=== PATIENT | female | born 1965 | race Caucasian/White ===

== ENCOUNTER 2017-05-12 07:33 | Inpatient (IN) | payer BC ==
[2017-05-05 10:32] VITALS: BMI 46.0
--- NOTE | 2017-05-05 10:57 | PAT Medication Instructions ---
Service Date May 05, 2017. Current Home Medication List Albuterol Hfa (Ventolin Hfa), Unknown Dose INH PRN PRN for ASTHMA Cetirizine (Zyrtec), 10 MG PO QAM Esomeprazole Magnesium (Nexium), 20 MG PO QAM Fluticasone Prop/Salmeterol (Advair Diskus 250/50 60 Dose), 2 PUFF INH BID Potassium Chloride (Micro-K Ext Rel), 3 CAP PO QAM Triamterene & Hydrochlorothiaz (Hctz/Triamterene), 1 TAB PO QAM Medication Instructions For Your Scheduled Surgery - Hold the following medications the morning of surgery: Potassium Chloride (Micro-K Ext Rel), 3 CAP PO QAM Triamterene & Hydrochlorothiaz (Hctz/Triamterene), 1 TAB PO QAM Cetirizine (Zyrtec), 10 MG PO QAM - Take the following medications the morning of surgery with a sip of water OTHERWISE NOTHING TO EAT OR DRINK AFTER MIDNIGHT: Fluticasone Prop/Salmeterol (Advair Diskus 250/50 60 Dose), 2 PUFF INH BID Albuterol Hfa (Ventolin Hfa), Unknown Dose INH PRN PRN for ASTHMA (use if needed ; BRING TO HOSPITAL) Esomeprazole Magnesium (Nexium), 20 MG PO QAM - Take the following medications as scheduled the night before surgery: Fluticasone Prop/Salmeterol (Advair Diskus 250/50 60 Dose), 2 PUFF INH BID Albuterol Hfa (Ventolin Hfa), Unknown Dose INH PRN PRN for ASTHMA If you have any questions please call us at [phone] or [phone] or [phone]
[2017-05-05 11:33] LABS: BASO % 0.4 %; BASO ABS # 0.03 K/uL (0-0.2); COMPLETE YES; EOS % 1.2 %; HEMATOCRIT 40.7 % (37-47); IG% 0.1 %; LYMPH % 23.8 %; LYMPH ABS # 1.81 K/uL (1.2-3.4); MEAN CELL VOLUME 86.2 fL (80-100); MEAN CORPUSCULAR HEMOGLOBIN 29.4 pg (25-34); MEAN CORPUSCULAR HGB CONC 34.2 g/dl (32-36); MEAN PLATELET VOLUME 8.8 fL (7.4-10.4); MONO % 5.5 %; PLATELET COUNT 304 K/uL (130-400); RED BLOOD COUNT 4.72 M/uL (4.2-5.4); URINE APPEARANCE CLEAR (CLEAR); URINE BILIRUBIN NEG (NEG); URINE COLOR YELLOW; URINE NITRITE NEG (NEG); URINE PH 8.5 (4.5-7.5); URINE SPECIFIC GRAVITY 1.007 (1.000-1.030); UROBILINOGEN NEG (NEG); WHITE BLOOD COUNT 7.61 K/uL (4.8-10.8)
--- NOTE | 2017-05-05 11:34 | DIAGNOSTIC IMAGING REPORT ---
CHEST PREADMISSION(PA/LAT) CLINICAL HISTORY: PAT preoperative evaluation COMPARISON STUDY: No previous studies for comparison. FINDINGS: The bones soft tissues and hemidiaphragms are normal. The cardiomediastinal silhouette is normal. The lungs are clear. The pulmonary vasculature is normal. IMPRESSION: Negative chest. The above report was generated using voice recognition software. It may contain grammatical, syntax or spelling errors. Electronically signed by: Johnson Mcdowell M.D. 05/05/2017 11:33 AM Dictated Date/Time: 05/05/2017 11:33 AM
[2017-05-05 11:38] LABS: MANUAL MICROSCOPIC REQUIRED? NO; REVIEW REQ? NO
[2017-05-05 11:42] LABS: PARTIAL THROMBOPLASTIN RATIO 1.1; PROTHROMBIN TIME (PATIENT) 10.4 SECONDS (9.0-12.0)
[2017-05-05 12:42] LABS: BUN/CREATININE RATIO 13.5 (10-20); CALCIUM 9.9 mg/dl (8.5-10.1); POTASSIUM 3.6 mmol/L (3.5-5.1)
--- NOTE | 2017-05-08 18:18 | History and Physical ---
History & Physical Date May 08, 2017. History of Present Illness The patient is a 51 year old female with complaints of left knee pain for about 3 years. Has failed all other forms of conservative treatment and is ready for left tka. Additional History Hepatic Disease: No Endocrine Disorder: No Kidney Disease: No Hypertension: No Heart Disease: No Bleeding Tendencies: No Infectious Diseases: No Allergies Coded Allergies: No Known Allergies (Unverified , 05/05/17) Home Medications Scheduled Cetirizine (Zyrtec), 10 MG PO QAM Esomeprazole Magnesium (Nexium), 20 MG PO QAM Fluticasone Prop/Salmeterol (Advair Diskus 250/50 60 Dose), 2 PUFF INH BID Potassium Chloride (Micro-K Ext Rel), 3 CAP PO QAM Triamterene & Hydrochlorothiaz (Hctz/Triamterene), 1 TAB PO QAM Scheduled PRN Albuterol Hfa (Ventolin Hfa), Unknown Dose INH PRN PRN for ASTHMA Physical Examination Skin: warm/dry, no rash Eyes: normal inspection, EOMI, sclerae normal ENT: normal ENT inspection, pharynx normal Head: normocephalic, atraumatic Neck: supple, no adenopathy, trachea midline Respiratory/Chest: lungs clear, normal breath sounds, no respiratory distress Cardiovascular: regular rate, rhythm, no edema, no murmur Abdomen / GI: normal bowel sounds, non tender Back: normal inspection Extremities: normal inspection, normal range of motion, + pertinent finding ( terrible pain and rom left knee with deformity) Neurologic/Psych: no motor/sensory deficits, alert, normal reflexes, oriented x 3 Diagnosis DJD LEFT KNEE Plan of Treatment ADMIT TO [facility] FOR LEFT TKA.
[2017-05-12] VITALS (8 sets, daily range): BP systolic 116–169; BP diastolic 65–81; PULSE 95–116; TEMP 36.7–37.1; O2SAT 95–98; Ht 172.7 cm; Wt 138.0 kg
[~2017-05-12] VITALS: Ht 172.7 cm; Wt 138.0 kg
[~2017-05-12 07:33] MED LIST: ACETAMINOPHEN 500 MG TAB PO SCH; ADVIN25/60 INH; BUPIVACAINE 0.25% 30 ML VIAL ONE; BUPIVACAINE 0.5 % 5 MG/1 ML PF 10ML VIAL ONE; CEFAZOLIN 3000 MG/65 ML D5W 65 ML IV SCH; CETI10TA84 PO; CeleBREX 200 MG CAP PO SCH; DEXAMETHASONE 4 MG TAB PO SCH; ESOM20CA PO; EpINEphrine INJ 1MG/ML AMP 1 MG/ML AMP ONE; FAMOTIDINE 20 MG TAB PO SCH; LACTATED RINGER'S 1000ML 1,000 ML IV SCH; LACTATED RINGER'S 1000ML IV SCH; METOCLOPRAMIDE HCL 10 MG TAB PO SCH; POTA10CA28 PO; ROPIVACAINE 5MG/ML 30 ML 150 MG, BUPIVACAINE/EPINEPHR 0.5% MPF 30 ML, KETOROLAC TROMETH... INFIL SCH; TRANEXAMIC ACID INJ 1,000 MG in SODIUM CHLORIDE 0.9% 100ML 100 ML IV SCH; TRIA75TA PO; VNTHFA/IN INH
[2017-05-12] MEDS ORDERED: ONDANSETRON INJ 2 MG/ML 2 ML VIAL IV PRN ×2 (09:30→12:00)
[2017-05-12] MEDS ORDERED: ATROPINE SULFATE 0.1 MG/ML 5ML SYR IV PRN (09:30)
[2017-05-12] MEDS ORDERED: EpHEDrine SULFATE INJ 50 MG/ML AMP IV PRN (09:30)
[2017-05-12] MEDS ORDERED: PROMETHAZINE HCL INJ 6.25 MG in SODIUM CHLORIDE 0.9% 50ML 50 ML IV PRN (09:30)
[2017-05-12] MEDS ORDERED: FENTANYL CITRATE INJ 50 MCG/1 ML 2 ML VIAL IV PRN (09:30)
--- NOTE | 2017-05-12 09:40 | History & Physical Bridge Note ---
H&P Re-Evaluation Bridge Note: I have examined the patient, reviewed the History & Physical and in the interval since the performance of the History & Physical I have noted the following changes of clinical significance: No changes noted
[2017-05-12] MEDS ORDERED: FENTANYL CITRATE INJ 50 MCG/1 ML 2 ML VIAL ONE (09:45)
[2017-05-12] MEDS ORDERED: MIDAZOLAM HCL 1 MG/ML 2ML VIAL ONE ×2 (09:45→10:44)
[2017-05-12] MEDS ORDERED: PROPOFOL IV EMULSION 10 MG/ML 20 ML VIAL IV ONE ×3 (09:45→12:01)
[2017-05-12] MEDS ORDERED: LIDOCAINE HCL 2% 2 ML VIAL (20MG/ML) ONE (09:45)
[2017-05-12] MEDS ORDERED: ORTHO JOINT ANESTHETIC ONE (10:16)
[2017-05-12] MEDS ORDERED: POVIDONE-IODINE OP SOLN 30 ML BTL ONE (10:16)
[2017-05-12] MEDS ORDERED: BACITRACIN 50000 UNIT VIAL ONE (10:16)
--- NOTE | 2017-05-12 11:54 | [facility] Operative Report ---
Operative Report Operative Date May 12, 2017. Pre-Operative Diagnosis Left knee degenerative joint disease Post-Operative Diagnosis Left knee degenerative joint disease Procedure(s) Performed Left Total Knee Arthroplasty, Cemented Surgeon Dr. Lantigua Lidar Technician Surgeon(s) Dionisio Yin PA-C Estimated Blood Loss 20ML Findings As above Specimens A: Left knee bone and tissue Complication(s) None Disposition Recovery Room / PACU Description of Procedure IMPLANTS USED: INDICATIONS: [Mrs Beach. ] is a pleasant (/female) who has unfortunately failed all forms of conservative measures. Therefore, they have decided to undergo elective surgical intervention. All risks and benefits of the surgery were discussed with the patient and the family in entirety. PROCEDURE: The patient was brought to the operating room and properly identified by myself, anesthesia, and staff. Patient was given a spinal anesthesia and placed on the operating table in the supine position. Tourniquets were applied to the left upper thigh. The leg was then prepped and draped in usual sterile fashion. We made a standard midline approach over the patella and dissected down through the subcutaneous tissue to identify the capsule and performed a medial capsulotomy with the patella everted and the knee flexed.The patient matched implant was then put onto the femur. The femur measured to be a size 6. This was then put into place. We made the appropriate cuts and then placed a retractor behind the proximal tibia to retract anteriorly. We then placed the patient matched knee implant on the tibia. It measured to be a size 4. A size 4 guide was then put in place. We used the tibial punch then put the trial components into place. We had very good range of motion, excellent stability, and excellent patella tracking. We removed the trial components and irrigated the wound. We impacted the components in place using antibiotic cement. All excess cement was removed. We then irrigated the wound once more. We closed the capsule with 0 PDS suture , deep dermis and 2-0 Vicryl, and finally the skin with anam. A sterile dressing was applied. The patient was taken to the recovery room in stable condition. Due to the complex nature of the procedure, the entire surgery was performed with the operational assistance of [bryan HALL)]. The physician's assistant was under direct supervision, was involved in the actual performance of all aspects of the surgical procedure including hemostasis, tissue retraction and incision, instrument management, patient positioning, and wound closure. I attest to the content of the Intraoperative Record and any orders documented therein. Any exceptions are noted below.
[2017-05-12] MEDS ORDERED: SOD PHOSPHATE/SOD BIPHOSPHATE ENEMA 132 ML BTL PR PRN (12:00)
[2017-05-12] MEDS ORDERED: MAGNESIUM HYDROXIDE SUSP 30 ML UDC PO PRN (12:00)
[2017-05-12] MEDS ORDERED: BISACODYL 10 MG SUPP PR PRN (12:00)
[2017-05-12] MEDS ORDERED: ALUMINUM/MAGNESIUM/SIMETH (MAALOX MAX) 30 ML UDC PO PRN (12:00)
[2017-05-12] MEDS ORDERED: ZOLPIDEM TARTRATE 5 MG TAB PO PRN (12:00)
[2017-05-12] MEDS: SODIUM CHLORIDE 0.9% 1000ML 1,000 ML IV SCH ×2 (14:11→21:17)
[2017-05-12] MEDS ORDERED: ALBUT/IPRATROP 3MG/0.5MG NEB 3 ML VIAL INH PRN (15:15)
--- NOTE | 2017-05-12 15:15 | Medical Consult ---
Consultation Date of Consultation: May 12, 2017. Attending Physician: Moses Lantigua DO Reason for Consultation: Medical Management History of Present Illness Ms. Beach is a 51 y/o female with PMHx of Asthma, GERD, and HTN who is S/P L TKA on 05/12. Patient reporting pain is well-controlled at this point. She is hemodynamically stable. Mildly tachycardic but reports she gets worked up and has white coat syndrome. Patient is regular rhythm on examination. She denies CP , SOB, palpitations, dizziness/lightheadedness. She reports good control of her Asthma and utilizes Advair 2 puffs BID. She states she only gets a cough when she flairs and has not had a recent flair aside from an episode of bronchitis in early April that is resolved. She denies H/O cardiac disease including MO or CHF. Denies H/O DVT/PE. Past Medical/Surgical History 1. GERD 2. Asthma 3. HTN 4. S/P R TKA Family History Hypertension Social History Smoking Status: Never Smoker Smokeless Tobacco Use: No Alcohol Use: socially Drug Use: none Marital Status: Allergies Coded Allergies: No Known Allergies (Unverified , 05/05/17) Current Inpatient Medications Current Inpatient Medications Medications (Trade) Dose Ordered Sig/Carolee Route Start Time Stop Time Status Last Admin Dose Admin Sodium Chloride 1,000 ml @ 100 mls/hr Q10H IV 05/12/17 11:46 05/13/17 11:45 05/12/17 14:11 100 MLS/HR Cefazolin Sodium 2000 mg/Dextrose 60 ml @ 100 mls/hr Q8H IV 05/12/17 19:00 05/13/17 03:35 Oxycodone HCl (Roxicodone Immediate Rel Tab) 1 TABLET FOR PAIN RATING... Q4H PRN PO 05/12/17 12:00 05/26/17 11:59 Acetaminophen (Tylenol Tab) 1,000 mg Q8H PO 05/12/17 16:00 06/11/17 15:59 Magnesium Hydroxide (Milk Of Magnesia Susp) 30 ml Q6H PRN PO 05/12/17 12:00 06/11/17 11:59 Bisacodyl (Dulcolax Supp) 10 mg DAILY PRN VT 05/12/17 12:00 06/11/17 11:59 Sodium Biphosphate/ Sodium Phosphate (Fleet Enema) 132 ml DAILY PRN VT 05/12/17 12:00 06/11/17 11:59 Docusate Sodium (coLACE CAP) 100 mg BID PO 05/12/17 21:00 06/11/17 20:59 Diphenhydramine HCl (Benadryl Cap) 25 mg Q8H PRN PO 05/12/17 12:00 06/11/17 11:59 Al Hydrox/Mg Hydrox/Simethicone (Maalox Max Susp) 15 ml Q4H PRN PO 05/12/17 12:00 06/11/17 11:59 Zolpidem Tartrate (Ambien Tab) 5 mg HSZ PRN PO 05/12/17 12:00 06/11/17 11:59 Ondansetron HCl (Zofran Inj) 4 mg Q6H PRN IV 05/12/17 12:00 06/11/17 11:59 Tranexamic Acid 1000 mg/Sodium Chloride 110 ml @ 660 mls/hr Q6H IV 05/12/17 18:30 05/12/17 18:39 Dexamethasone Sodium Phosphate 10 mg/Syringe 2.5 ml @ 1 mls/min TODAY@0730 IV 05/13/17 07:30 05/13/17 07:33 Aspirin (Ecotrin Tab) 81 mg BID PO 05/12/17 21:00 06/11/17 20:59 Cetirizine HCl (zyrTEC TAB) 10 mg QAM PO 05/13/17 09:00 06/12/17 08:59 Salmeterol Xinafoate/ Fluticasone (Advair Diskus 250/50 Inh) 2 puff BID INH 05/12/17 21:00 06/11/17 20:59 Potassium Chloride (Klor-Con M10) 30 meq QAM PO 05/13/17 09:00 06/12/17 08:59 Miscellaneous Information (Order Awaiting Action) 1 ea QS N/A 05/12/17 16:00 06/11/17 15:59 Review of Systems Constitutional: No fever, No chills ENT: No nasal symptoms, No sore throat, No trouble swallowing Respiratory: No cough, No sputum, No wheezing, No shortness of breath Cardiovascular: No chest pain, No palpitations Abdomen: No pain, No nausea, No vomiting, No diarrhea, No constipation Musculoskeletal: No swelling, No calf pain Genitourinary - Female: No dysuria Hematologic / Lymphatic: No abnormal bleeding/bruising Integumentary: No rash Physical Exam Date Time Temp Pulse Resp B/P (MAP) Pulse Ox O2 Delivery O2 Flow Rate FiO2 05/12/17 14:15 36.8 112 16 127/78 (94) 98 Nasal Cannula 2.0 05/12/17 13:45 37.1 109 17 116/77 (90) 98 Nasal Cannula 2.0 05/12/17 13:15 36.9 112 16 144/78 (100) 98 Nasal Cannula 2.0 05/12/17 13:15 98 Nasal Cannula 2.0 05/12/17 13:15 Nasal Cannula 2.0 05/12/17 13:02 109 16 99 05/12/17 13:02 109 16 05/12/17 13:01 149/78 05/12/17 12:59 36.7 05/12/17 12:57 109 19 05/12/17 12:57 110 19 98 05/12/17 12:56 155/81 05/12/17 12:54 111 16 98 05/12/17 12:54 111 16 05/12/17 12:53 109 12 05/12/17 12:53 108 12 98 05/12/17 12:51 146/80 05/12/17 12:48 111 21 05/12/17 12:48 111 21 99 05/12/17 12:46 145/74 05/12/17 12:43 110 11 05/12/17 12:43 110 11 100 05/12/17 12:42 110 16 05/12/17 12:42 110 16 100 05/12/17 12:41 141/70 05/12/17 12:37 113 13 05/12/17 12:37 111 13 100 05/12/17 12:36 136/66 05/12/17 12:33 118/76 05/12/17 12:32 115 20 99 05/12/17 12:32 115 20 05/12/17 12:32 37.6 110 20 118/76 99 Oxymask 10 05/12/17 08:08 36.7 112 20 169/72 (104) 98 Room Air General Appearance: WD/WN, no apparent distress, + obese Head: normocephalic, atraumatic Eyes: sclerae normal ENT: hearing grossly normal Neck: supple, no JVD, trachea midline Respiratory/Chest: lungs clear, normal breath sounds, no respiratory distress, no accessory muscle use Cardiovascular: regular rate, rhythm, no gallop, no murmur Abdomen/GI: normal bowel sounds, non tender, soft Extremities/Musculoskelatal: no calf tenderness, normal capillary refill, no pedal edema, + pertinent finding (LLE with POOJA wrap C/D/I) Neurologic/Psych: alert, oriented x 3 Skin: normal color, warm/dry Assessment & Plan Ms. Beach is a 51 y/o female with PMHx of Asthma, GERD, and HTN who is S/P L TKA on 05/12 S/P L TKA on 05/12: - Pain management, IVF, PT/OT, DVT prophylaxis per primary - DVT prophylaxis - ASA 81 mg BID Asthma without Exacerbation: - Advair 2 puffs BID - Duonebs PRN HTN: - Hold HCTZ/Triamterene until AM labs to assess renal function - can resume if normal - Cover with Hydralazine PRN GERD: - Protonix 40 mg daily for Nexium interchange .Attending Addendum: I have physically seen this patient, have directed the physician assistants medical activities, and agree with the H&P as noted above with the following exceptions as noted. Assessment and Plan: Status post left total knee arthroplasty on 05/12-- Seen postoperatively is medically stable. Ex Asthma-- Continue her usual Advair 2 puffs twice a day. I will also do nebs every 4 hours when necessary. Next Hypertension-- Hold Dyazide as noted above. Hydralazine 10 mg IV every 4 hours when necessary systolic blood pressure greater than 160. Next GERD-- Change Nexium to Protonix.
[2017-05-12] MEDS: OXYCODONE HCL IR 5 MG TAB (IMMEDIATE RELEASE) PO PRN ×2 (16:02→21:18)
[2017-05-12] MEDS: ACETAMINOPHEN 500 MG TAB PO SCH ×2 (16:02→23:55)
[2017-05-12] MEDS ORDERED: TRANEXAMIC ACID INJ 1,000 MG in SODIUM CHLORIDE 0.9% 100ML 100 ML IV SCH (18:30)
[2017-05-12] MEDS: CEFAZOLIN IV 2,000 MG in DEXTROSE 5% 50ML 50 ML IV SCH (19:08)
[2017-05-12] MEDS: FLUTICASONE/SALMETEROL 250/50 (ADVAIR) 14 PUFF/1 INHALER INH SCH (21:17)
[2017-05-12] MEDS: DOCUSATE SODIUM 100 MG CAP PO SCH (21:17)
[2017-05-12] MEDS: ASPIRIN 81 MG ECTAB PO SCH (21:17)
[2017-05-13 03:35] VITALS: BP 111/69; PULSE 90; TEMP 36.6; O2SAT 97
[2017-05-13] MEDS: OXYCODONE HCL IR 5 MG TAB (IMMEDIATE RELEASE) PO PRN ×4 (03:41→12:57)
[2017-05-13] MEDS: CEFAZOLIN IV 2,000 MG in DEXTROSE 5% 50ML 50 ML IV SCH (03:49)
[2017-05-13 06:10] LABS: HEMATOCRIT 34.9 % (37-47); MEAN CELL VOLUME 86.4 fL (80-100); MEAN CORPUSCULAR HEMOGLOBIN 29.5 pg (25-34); MEAN CORPUSCULAR HGB CONC 34.1 g/dl (32-36); PLATELET COUNT 275 K/uL (130-400); RED BLOOD COUNT 4.04 M/uL (4.2-5.4)
[2017-05-13 06:37] LABS: BUN/CREATININE RATIO 14.8 (10-20); CALCIUM 8.9 mg/dl (8.5-10.1); CREATININE 1.1 mg/dl (0.60-1.20); POTASSIUM 4.2 mmol/L (3.5-5.1)
[2017-05-13] MEDS: SODIUM CHLORIDE 0.9% 1000ML 1,000 ML IV SCH (07:18)
[2017-05-13] MEDS ORDERED: DEXAMETHASONE INJ 10 MG in SYRINGE 0 ML IV SCH (07:30)
[2017-05-13 07:39] VITALS: BP 156/96; PULSE 90; TEMP 36.8; O2SAT 97
[2017-05-13] MEDS: ACETAMINOPHEN 500 MG TAB PO SCH (07:47)
--- NOTE | 2017-05-13 07:49 | Anesthesiology Progress Note ---
Anesthesia Post Op Note Date & Time May 13, 2017 at 07:48 Vital Signs Vital Signs Past 12 Hours Date Time Temp Pulse Resp B/P (MAP) Pulse Ox O2 Delivery O2 Flow Rate FiO2 05/13/17 07:39 36.8 90 18 156/96 (116) 97 Room Air 05/13/17 03:35 36.6 90 16 111/69 (83) 97 Room Air 05/12/17 23:20 Room Air 05/12/17 22:55 36.7 95 16 131/65 (87) 95 Room Air Notes Mental Status: alert / awake / arousable, participated in evaluation Pt Amnestic to Procedure: Yes Nausea / Vomiting: adequately controlled Pain: adequately controlled Airway Patency, RR, SpO2: stable & adequate BP & HR: stable & adequate Hydration State: stable & adequate Neuraxial Anesthesia: sensory block resolved Anesthetic Complications: no major complications apparent
--- NOTE | 2017-05-13 07:50 | Orthopedic Progress Note ---
Orthopedic Progress Note Date of Service May 13, 2017. Subjective Post OP Day: 1 Reports: feeling well, Denies: chest pain, SOB, nausea / vomiting, light headedness, calf pain Objective calves soft nontender, N/V intact, dressing C/D/I, A&O x3, toes mobile Date Time Temp Pulse Resp B/P (MAP) Pulse Ox O2 Delivery O2 Flow Rate FiO2 05/13/17 07:39 36.8 90 18 156/96 (116) 97 Room Air 05/13/17 03:35 36.6 90 16 111/69 (83) 97 Room Air 05/12/17 23:20 Room Air 05/12/17 22:55 36.7 95 16 131/65 (87) 95 Room Air 05/12/17 18:55 36.8 109 18 132/74 (93) 95 Room Air 05/12/17 16:18 36.8 107 18 132/68 (89) 96 Room Air 05/12/17 16:00 Room Air 05/12/17 15:15 36.8 116 18 130/81 (97) 97 Nasal Cannula 2.0 05/12/17 14:15 36.8 112 16 127/78 (94) 98 Nasal Cannula 2.0 05/12/17 13:45 37.1 109 17 116/77 (90) 98 Nasal Cannula 2.0 05/12/17 13:15 36.9 112 16 144/78 (100) 98 Nasal Cannula 2.0 05/12/17 13:15 98 Nasal Cannula 2.0 05/12/17 13:15 Nasal Cannula 2.0 05/12/17 13:02 109 16 99 05/12/17 13:02 109 16 05/12/17 13:01 149/78 05/12/17 12:59 36.7 05/12/17 12:57 109 19 05/12/17 12:57 110 19 98 05/12/17 12:56 155/81 05/12/17 12:54 111 16 98 05/12/17 12:54 111 16 05/12/17 12:53 109 12 05/12/17 12:53 108 12 98 05/12/17 12:51 146/80 05/12/17 12:48 111 21 05/12/17 12:48 111 21 99 05/12/17 12:46 145/74 05/12/17 12:43 110 11 05/12/17 12:43 110 11 100 05/12/17 12:42 110 16 05/12/17 12:42 110 16 100 05/12/17 12:41 141/70 05/12/17 12:37 113 13 05/12/17 12:37 111 13 100 05/12/17 12:36 136/66 05/12/17 12:33 118/76 05/12/17 12:32 115 20 99 05/12/17 12:32 115 20 05/12/17 12:32 37.6 110 20 118/76 99 Oxymask 10 05/12/17 08:08 36.7 112 20 169/72 (104) 98 Room Air Laboratory Results 24 Hours: Test 05/13/17 05:28 Hematocrit 34.9 % Hemoglobin 11.9 g/dL Assessment & Plan Assessment: POD#1 SP LEFT TKA Plan: PT/OT PAIN MANAGEMENT- Mireya, Tylenol MEDICAL MANAGEMENT DC PLANNING- Home today with home PT/[facility] Ok to dc dressing before discharge
[2017-05-13] MEDS ORDERED: ONDA8TAB6 PO (07:52)
[2017-05-13] MEDS ORDERED: ASPEC81 PO (07:52)
[2017-05-13] MEDS ORDERED: RXC5 PO (07:52)
[2017-05-13] MEDS ORDERED: ACET-24 PO (07:52)
--- NOTE | 2017-05-13 07:54 | Discharge Instructions ---
Discharge Instructions Date of Service May 13, 2017. Admission Reason for Admission: Left Knee Osteoarthritis Discharge Discharge Diagnosis / Problem: sp left TKA Discharge Goals Goal(s): Decrease discomfort, Improve function, Increase independence Activity Recommendations Activity Limitations: per Instructions/Follow-up section . Instructions / Follow-Up Instructions / Follow-Up ACTIVITY RECOMMENDATIONS: SELF CARE INSTRUCTIONS AFTER TOTAL KNEE REPLACEMENT A. You may need to continue a physical therapy program after discharge from the hospital. There are several options available to you. Your doctor will assist you in selecting the best one for you. 1. An out-patient facility 2 to 3 times a week for therapy or home therapy. 2. Continue working on all exercises taught to you in the hospital. Your goals should be to increase bending of your knee to 90 degrees and beyond and to fully straighten your knee. B. You may progress at your own pace from walking with a walker or crutches to a cane; then to no assistive devices. C. Make walking a part of your daily routine. Be up as much as comfortable with rest periods throughout the day. Rest with leg elevation is very important. Use the ice wrap frequently for the first 3-4 weeks. D. There are no restrictions on activities. You may ride in a car, shop, participate in c iron worker and all social activities. E. Wear the long elastic stockings (AGA hose) 20 hours a day for 2 weeks after surgery. They can be removed several times a day for laundering and for a bath. F. You may shower, no tub baths until cleared by your doctor. SPECIAL CARE INSTRUCTIONS: VERY IMPORTANT TO READ AND REVIEW A. There are a few signs you need to watch for after you are home. Call [facility] if you notice any of the followin. Increased severe knee pain. Some pain is expected especially when you exercise. 2. Increased swelling in your leg or knee; pain or swelling of the calf muscle in either lower leg. 3. Any fluid drainage from the incision. 4. Shortness of breath or chest pain. B. Please call [facility] at if you have any concerns or questions about your operation or recovery. The doctor or his nurse will return your call promptly. C. You must take antibiotics before dental work, bladder, bowel or other surgery. Your doctor will provide you with a permanent care to carry describing this precaution. IMPORTANT: * REMEMBER TO TAKE ASPIRIN, 81 MG, TWICE DAILY FOR 4 WEEKS UNLESS OTHERWISE DIRECTED. THIS IS YOUR BLOOD THINNER. * HIGH RISK PATIENTS MAY BE PRESCRIBED A STRONGER BLOOD THINNER. THIS WILL BE PROVIDED AT DISCHARGE. * CALL IF INCREASED PAIN, REDNESS, DRAINAGE OR FEVER GREATER THAT 101. * WEAR AGA HOSE 20 HOURS PER DAY FOR 2 WEEKS. DERMABOND Prineo- This is a mesh tape dressing that is covered with glue. It should remain in place until the incision is properly healed, usually 10-14 days. This dressing is designed to naturally slough off. You may trim the excess mesh tape as it peels off. Incision may be briefly wet in a shower. Dry immediately by blotting with a clean, dry towel. Do not bath or swim until instructed by your doctor. Do not scratch, rub, or pick at the dressing. Do not apply any topical ointments or lotions until dressing is completely removed and/or instructed by your doctor. There may be a small piece of suture material at one end of your incision. Do not pull or trim this. If it is bothersome or catching on clothing, you may cover it with a band-aid. FOLLOW UP VISIT: If appointment is not already scheduled: Please call [facility] to make a follow-up appointment for 2 weeks after your surgery at . Current Hospital Diet Patient's current hospital diet: Regular Diet Discharge Diet Recommended Diet: Regular Diet Procedures Procedures Performed: Left Total Knee Arthroplasty, Cemented Pending Studies Studies pending at discharge: no Medical Emergencies . Who to Call and When: Medical Emergencies: If at any time you feel your situation is an emergency, please call 911 immediately. . Non-Emergent Contact Non-Emergency issues call your: Surgeon . "Provider Documentation" section prepared by Ai Cagle. . VTE Core Measure Inpt VTE Proph given/why not?: Other Anticoagulation, SCD's [place] Drug Monitoring Program Search Results: patient reviewed within database, no issues identified
[2017-05-13] MEDS: FLUTICASONE/SALMETEROL 250/50 (ADVAIR) 14 PUFF/1 INHALER INH SCH (08:55)
[2017-05-13] MEDS: DOCUSATE SODIUM 100 MG CAP PO SCH (08:55)
[2017-05-13] MEDS: ASPIRIN 81 MG ECTAB PO SCH (08:55)
[2017-05-13] MEDS ORDERED: TRIAMTERENE PO SCH (09:00)
[2017-05-13] MEDS ORDERED: HCTZ PO SCH (09:00)
[2017-05-13] MEDS ORDERED: CETIRIZINE HCL 10 MG TAB PO SCH (09:00)
[2017-05-13] MEDS ORDERED: PANTOprazole SOD 40 MG TAB PO SCH (09:00)
[2017-05-13] MEDS ORDERED: POTASSIUM CHLORIDE 10 MEQ TABCR PO SCH (09:00)
[2017-05-13 09:36] VITALS: BP 156/96; PULSE 90; TEMP 36.8; O2SAT 97
--- NOTE | 2017-05-13 09:52 | Hospitalist Progress Note ---
Hospitalist Progress Note Date of Service May 13, 2017. (Leia Laureano ., CHARANJITC) Subjective Pt evaluation today including: conversation w/ patient, physical exam, lab review, review of studies, review of inpatient medication list Voiding: no voiding problems Patient feeling well this AM. Pain is well controlled. Eating and drinking OK. +flatus postop, no BM- last BM was 05/12 prior to surgical procedure. Patient denies any fever, chills, sweats, lightheadedness, dizziness, vision changes, CP, palpitations, edema, SOB, wheezing, cough, abdominal pain, nausea, vomiting, diarrhea, urinary symptoms, melena, numbness/tingling, weakness, anxiety/depression, active bleeding, or new skin discoloration/changes. (Leia Laureano ., CHARANJITC) Medications Current Inpatient Medications Medications (Trade) Dose Ordered Sig/Carolee Route Start Time Stop Time Status Last Admin Dose Admin Sodium Chloride 1,000 ml @ 100 mls/hr Q10H IV 05/12/17 11:46 05/13/17 11:45 05/13/17 07:18 100 MLS/HR Oxycodone HCl (Roxicodone Immediate Rel Tab) 1 TABLET FOR PAIN RATING... Q4H PRN PO 05/12/17 12:00 05/26/17 11:59 05/13/17 08:54 5 MG Acetaminophen (Tylenol Tab) 1,000 mg Q8H PO 05/12/17 16:00 06/11/17 15:59 05/13/17 07:47 1,000 MG Magnesium Hydroxide (Milk Of Magnesia Susp) 30 ml Q6H PRN PO 05/12/17 12:00 06/11/17 11:59 Bisacodyl (Dulcolax Supp) 10 mg DAILY PRN [place] 05/12/17 12:00 06/11/17 11:59 Sodium Biphosphate/ Sodium Phosphate (Fleet Enema) 132 ml DAILY PRN [place] 05/12/17 12:00 06/11/17 11:59 Docusate Sodium (coLACE CAP) 100 mg BID PO 05/12/17 21:00 06/11/17 20:59 05/13/17 08:55 100 MG Diphenhydramine HCl (Benadryl Cap) 25 mg Q8H PRN PO 05/12/17 12:00 06/11/17 11:59 Al Hydrox/Mg Hydrox/Simethicone (Maalox Max Susp) 15 ml Q4H PRN PO 05/12/17 12:00 06/11/17 11:59 Zolpidem Tartrate (Ambien Tab) 5 mg HSZ PRN PO 05/12/17 12:00 06/11/17 11:59 Ondansetron HCl (Zofran Inj) 4 mg Q6H PRN IV 05/12/17 12:00 06/11/17 11:59 Aspirin (Ecotrin Tab) 81 mg BID PO 05/12/17 21:00 06/11/17 20:59 05/13/17 08:55 81 MG Cetirizine HCl (zyrTEC TAB) 10 mg QAM PO 05/13/17 09:00 06/12/17 08:59 05/13/17 08:56 10 MG Salmeterol Xinafoate/ Fluticasone (Advair Diskus 250/50 Inh) 2 puff BID INH 05/12/17 21:00 06/11/17 20:59 05/13/17 08:55 2 PUFF Potassium Chloride (Klor-Con M10) 30 meq QAM PO 05/13/17 09:00 06/12/17 08:59 05/13/17 08:56 30 MEQ Albuterol/ Ipratropium (Duoneb) 3 ml Q2R PRN INH 05/12/17 15:15 06/11/17 15:14 Pantoprazole Sodium (Protonix Tab) 40 mg QAM PO 05/13/17 09:00 06/12/17 08:59 05/13/17 08:56 40 MG Non-Formulary Medication (Non-Formulary Patient'S Own Med) 1 ea DAILY PO 05/13/17 09:00 05/14/17 18:00 (Leia Laureano, BR[place]ORD) Objective Vital Signs Date Time Temp Pulse Resp B/P (MAP) Pulse Ox O2 Delivery O2 Flow Rate FiO2 05/13/17 07:39 36.8 90 18 156/96 (116) 97 Room Air 05/13/17 03:35 36.6 90 16 111/69 (83) 97 Room Air 05/12/17 23:20 Room Air 05/12/17 22:55 36.7 95 16 131/65 (87) 95 Room Air 05/12/17 18:55 36.8 109 18 132/74 (93) 95 Room Air 05/12/17 16:18 36.8 107 18 132/68 (89) 96 Room Air 05/12/17 16:00 Room Air 05/12/17 15:15 36.8 116 18 130/81 (97) 97 Nasal Cannula 2.0 05/12/17 14:15 36.8 112 16 127/78 (94) 98 Nasal Cannula 2.0 05/12/17 13:45 37.1 109 17 116/77 (90) 98 Nasal Cannula 2.0 05/12/17 13:15 36.9 112 16 144/78 (100) 98 Nasal Cannula 2.0 05/12/17 13:15 98 Nasal Cannula 2.0 05/12/17 13:15 Nasal Cannula 2.0 05/12/17 13:02 109 16 99 05/12/17 13:02 109 16 05/12/17 13:01 149/78 05/12/17 12:59 36.7 05/12/17 12:57 109 19 05/12/17 12:57 110 19 98 05/12/17 12:56 155/81 05/12/17 12:54 111 16 98 05/12/17 12:54 111 16 05/12/17 12:53 109 12 05/12/17 12:53 108 12 98 05/12/17 12:51 146/80 05/12/17 12:48 111 21 05/12/17 12:48 111 21 99 05/12/17 12:46 145/74 05/12/17 12:43 110 11 05/12/17 12:43 110 11 100 05/12/17 12:42 110 16 05/12/17 12:42 110 16 100 05/12/17 12:41 141/70 05/12/17 12:37 113 13 05/12/17 12:37 111 13 100 05/12/17 12:36 136/66 05/12/17 12:33 118/76 05/12/17 12:32 115 20 99 05/12/17 12:32 115 20 05/12/17 12:32 37.6 110 20 118/76 99 Oxymask 10 (Leia Laureano, PA-C) Physical Exam General Appearance: no apparent distress, + obese Eyes: normal inspection, PERRL ENT: hearing grossly normal Neck: supple Respiratory/Chest: lungs clear, no respiratory distress, no accessory muscle use Cardiovascular: regular rate, rhythm Abdomen: normal bowel sounds, non tender, soft Extremities: no pedal edema, no calf tenderness, + pertinent finding (L knee w / POOJA bandage ) Neurologic/Psychiatric: no motor/sensory deficits, alert, normal mood/affect, oriented x 3 Skin: normal color, warm/dry, no rash (Leia Laureano, PA-C) Laboratory Results Last 24 Hours Test 05/13/17 05:28 White Blood Count 14.80 K/uL Red Blood Count 4.04 M/uL Hemoglobin 11.9 g/dL Hematocrit 34.9 % Mean Corpuscular Volume 86.4 fL Mean Corpuscular Hemoglobin 29.5 pg Mean Corpuscular Hemoglobin Concent 34.1 g/dl RDW Standard Deviation 44.4 fL RDW Coefficient of Variation 14.0 % Platelet Count 275 K/uL Mean Platelet Volume 9.0 fL Sodium Level 140 mmol/L Potassium Level 4.2 mmol/L Chloride Level 105 mmol/L Carbon Dioxide Level 24 mmol/L Anion Gap 11.0 mmol/L Blood Urea Nitrogen 16 mg/dl Creatinine 1.10 mg/dl Est Creatinine Clear Calc Drug Dose 88.3 ml/min Estimated GFR () 66.8 Estimated GFR (Non- 57.7 BUN/Creatinine Ratio 14.8 Random Glucose 143 mg/dl Calcium Level 8.9 mg/dl (Leia Laureano, PA-C) Assessment and Plan Ms. Beach is a 51 y/o female with PMHx of Asthma, GERD, and HTN who is S/P L TKA on 05/12 S/P L TKA on 05/[address] Lantigua: - Pain management, IVF, PT/OT, DVT prophylaxis per primary - Postop labs- STABLE - Encouraged incentive spirometer Asthma w/out exacerbation: - Advair 2 puffs BID - DuoNebs PRN HTN: - Held HCTZ/Triamterene until review of postop labs- resume at discharge - Hydralazine PRN GERD: Protonix 40 mg daily for Nexium interchange DVT prophylaxis: ASA 81 mg BID Code Status: LEVEL I, FULL Dispo: Discharge to home w/ HHS as per primary team (Leia Laureano, PA-C) I agree with the above progress note. I examined patient and discussed case and plan with patient and APC. My physical exam did not vary from APC's exam of patient. (Michael Walker M.D.)
[2017-05-13 11:20] VITALS: BP 146/83; PULSE 91; TEMP 36.7; O2SAT 96
--- NOTE | 2017-05-20 14:58 | DISCHARGE SUMMARY ---
DISCHARGE DIAGNOSIS: Degenerative joint disease, left knee. SECONDARY DIAGNOSES: Gastroesophageal reflux disease and hypertension. CONSULTS: Ros Clifton PA-C/Sha Miranda MD COMPLICATIONS: None. PROCEDURES: Left total knee arthroplasty performed by Dr. Lantigua on 05/12/2017. BRIEF HISTORY: As dictated in the history and physical. HOSPITAL SUMMARY: The patient was admitted on the above-noted date and had the above-noted surgery performed, which he tolerated well. On the first postoperative day, the patient was feeling well and had no complaints. Calves were soft, nontender, neurovascularly intact. Dressings clean, dry and intact. Toes were mobile. Vital signs were stable. She was afebrile and hemoglobin was 11.9. She was started on physical therapy protocol and continued on DVT prophylaxis and pain management. She was progressing well with her physical therapy and remained stable and it was felt she could be discharged to home on 05/13/2017. For further review, please see chart. LAB AND X-RAY DATA: As per chart. DISCHARGE INSTRUCTIONS: The patient was discharged to home in satisfactory condition on 05/13/2017. DIET: Regular. ACTIVITY: Follow TK instruction sheets and special care instructions as noted. Follow up with Dr. Lantigua in 2 weeks. The patient is to call for an appointment if one has not been made for you. DISCHARGE MEDICATIONS: Acetaminophen 1000 mg p.o. q. 8 hours, aspirin 81 mg p.o. b.i.d., Zofran 8 mg p.o. q. 8 hours p.r.n. nausea, and oxycodone 5-10 mg p.o. q. 4 hours p.r.n. Resume home meds as listed in discharge instructions.
== END 2017-05-13 13:31 | disposition home health service (06) | DRG 470 ==
LOC: C.ACU 07:33 → C.3E 07:40 → ENRESERV 12:47
PROVIDERS: ADMIT Orthopaedic Surgery; ATTEND Orthopaedic Surgery
PROC: 0SRD0J9 Replacement of Left Knee Joint with Synthetic Substitute, Cemented, Open Approach (ICD-10-PCS; principal; 2017-05-12 10:30)
DX: M17.12 Unilateral primary osteoarthritis, left knee (principal); I10 Essential (primary) hypertension; K21.9 Gastro-esophageal reflux disease without esophagitis; J45.909 Unspecified asthma, uncomplicated; Z79.899 Other long term (current) drug therapy